=== PATIENT | female | born 1950 | race Caucasian/White ===

== ENCOUNTER → 2025-06-24 | Outpatient (CLI) | payer MEDICARE, BC, SELFPAY ==
--- NOTE | 2025-06-24 09:49 | XR_ITS ---
Examination: Lumbar spine, 5 views Technique: Lumbar spine AP, lateral, coned lateral lower lumbar spine, bilateral obliques 5 views Exam date and time: June 24, 2025, 0959 hours INDICATIONS: Low back pain beginning several years ago, patient fell 2 months ago with injury to lower back, lower back pain. FINDINGS: Thoracolumbar levoscoliosis 20 degrees Severe osteopenia Advanced diffuse facet arthropathy No acute lumbar fracture Diffuse advanced lumbar degenerative disc disease Prominent lumbar spondylosis IMPRESSION: No lumbar fracture Thoracolumbar levoscoliosis 20 degrees Diffuse advanced lumbar degenerative disc disease
--- NOTE | 2025-06-24 09:49 | XR_ITS ---
Examination:Left hip AP, lateral, AP pelvis 3 views Technique: Hip AP lateral, AP pelvis, 3 views Exam date and time:June 24, 2025, 0959 hours INDICATIONS: Left hip pain beginning several years ago. FINDINGS: Severe left hip osteoarthritis, severe joint space narrowing with subarticular sclerosis Moderate narrowing right hip joint No hip or pelvic fracture IMPRESSION: Severe left hip posterior osteoarthritis
== END | disposition home or self-care (01) ==
PROVIDERS: PCP Registered Nurse; Referring Provider Registered Nurse; Visit Provider Registered Nurse
DX: M41.85 Other forms of scoliosis, thoracolumbar region (principal); M51.360 Other intervertebral disc degeneration, lumbar region with discogenic back pain only; M16.12 Unilateral primary osteoarthritis, left hip
CPT/HCPCS: 72110; 73502